=== PATIENT | male | born 1980 | race Caucasian/White ===

== ENCOUNTER → 2018-04-18 | Outpatient (REF) | payer OTHER | LOC: M LAB REF 15:36 | PROVIDERS: ATTEND Surgery | DX: D17.21 Benign lipomatous neoplasm of skin and subcutaneous tissue of right arm (principal) ==

== ENCOUNTER 2019-03-22 09:00 | Emergency (ER) | payer BC, OTHER ==
[~2019-03-22] VITALS: Ht 180.3 cm; Wt 71.2 kg
[2019-03-22] MEDS ORDERED: SUBO8MIS (09:08)
[2019-03-22] MEDS ORDERED: GABA-843 (09:08)
[2019-03-22 10:06] LABS: BASO # 0.1 10^3/uL (0.0-0.2); EOS # 0.7 10^3/uL (0.0-0.5); EOS % 5.6 % (0.0-3.0); HEMATOCRIT 34.4 % (42.0-52.0); HEMOGLOBIN 11.8 g/dl (13.5-17.5); LYMPH # 2.4 10^3/uL (1.5-5.0); LYMPH % 20.3 % (24.0-44.0); MEAN CORPUSCULAR HEMOGLOBIN 31.1 pg (27.0-33.0); MEAN CORPUSCULAR HGB CONC 34.3 g/dl (32.0-36.5); MEAN CORPUSCULAR VOLUME 90.8 fl (80.0-96.0); MONO # 1.2 10^3/uL (0.0-0.8); MONO % 9.8 % (0.0-5.0); NEUTROPHILS # 7.5 10^3/uL (1.5-8.5); PLATELET COUNT, AUTOMATED 399 10^3/uL (150-450); RED BLOOD COUNT 3.79 10^6/uL (4.30-6.10); WHITE BLOOD COUNT 11.9 10^3/uL (4.0-10.0)
[2019-03-22] MEDS ORDERED: MORPHINE 4 MG/ML 1ML VIAL/SYRINGE (J2270) IV ONE ×2 (10:15→11:00)
--- NOTE | 2019-03-22 10:16 | REP ---
LIMITED FACIAL BONE SERIES: Three limited views of the facial bones are performed. Patient sustained laceration to the chin. No fracture is seen of the visualized osseous structures. I see no intrinsic osseous pathology. The visualized paranasal sinuses do not demonstrate air fluid levels. Electronically Signed by Dane Torre MD 03/23/2019 11:20 A
[2019-03-22 10:18] LABS: INR 1.09; PROTHROMBIN TIME 13.8 SECONDS (11.8-14.0)
[2019-03-22 10:19] LABS: PARTIAL THROMBOPLASTIN TIME 32.8 SECONDS (25.0-38.4)
[2019-03-22] MEDS ORDERED: CLINDAMYCIN 900 MG in IV 1 EA IV ONE (10:45)
[2019-03-22] MEDS ORDERED: LIDOCAINE W/EPINEPHRINE 1% 20ML VIAL SC ONE (10:45)
[2019-03-22 11:59] LABS: BLOOD UREA NITROGEN 15 MG/DL (7-18); CARBON DIOXIDE LEVEL 29 MEQ/L (21-32); CHLORIDE LEVEL 104 MEQ/L (98-107); CREATININE FOR GFR 0.86 MG/DL (0.70-1.30); GLOMERULAR FILTRATION RATE > 60.0 (>60); GLUCOSE, FASTING 89 MG/DL (70-100); POTASSIUM SERUM 4.1 MEQ/L (3.5-5.1); SODIUM LEVEL 140 MEQ/L (136-145)
[2019-03-22] MEDS ORDERED: KETO10TAB PO (12:07)
[2019-03-22] MEDS ORDERED: CLEO300C2 PO (12:07)
[2019-03-22] MEDS ORDERED: PERI0.126 PO (12:11)
[2019-03-22] MEDS ORDERED: ACETAMINOPHEN 325 MG TAB PO ONE (12:15)
[2019-03-22] MEDS ORDERED: KETOROLAC 60 MG/2 ML VIAL (J1885) IM ONE (12:15)
[2019-03-22] MEDS ORDERED: KETOROLAC 30 MG/ML VIAL (J1885) IV ONE (12:15)
[2019-03-22 12:16] VITALS: BP 139/68
[2019-03-22] MEDS ORDERED: TRAM50TA2 PO (12:20)
--- NOTE | 2019-03-22 12:26 | CR.PDOC ---
General Surgery Consultation Date of Consultation 03/22/19 History and Physical CONSULT REPORT FOR: Otolaryngology from the ER REASON FOR CONSULTATION: Facial laceration HISTORY OF PRESENT ILLNESS: This is a 39-year-old male who fell backwards off of the staircase and landed squarely on his chin. There was no loss of consciousness. Bleeding has subsided. There is no evidence of facial fracture. He does have a through and through laceration of the chin into the mucosa of the mouth. PAST MEDICAL HISTORY: 1. See chart. PAST SURGICAL HISTORY: INCLUDES: 1. See chart. PREVIOUS ANESTHESIA REACTIONS: None ALLERGIES: Please see below. FAMILY HISTORY: Noncontributory. HOME MEDICATIONS: Please see below. REVIEW OF SYSTEMS: GENERAL: [Denies chills, reports weight gain, reports feeling febrile yesterday]. HEENT: Negative save what was mentioned in the HPI. NECK: Denies any neck pain]. CARDIOVASCULAR: [Denies chest pain and palpitations]. MUSCULOSKELETAL: [Denies arthralgias, back pain and thrombophlebitis]. SKIN: [Denies rash]. NEUROLOGIC: [Denies headache, stroke and transient ischemic attack]. PSYCHIATRIC: [Denies anxiety and depression]. ENDOCRINE: [Denies thyroid disease]. HEMATOLOGY/ONCOLOGY: [Denies bleeding or clotting disorder]. HEART: [Denies any chest pains, palpitations, paroxysmal dyspnea, orthopnea]. PULMONARY: [Denies chronic cough, dyspnea and wheezing]. GASTROINTESTINAL: [Denies rectal bleeding, family history of colon cancer, constipation, diarrhea, dysphagia, heartburn and jaundice]. GENITOURINARY: [Denies dysuria, frequency, hematuria and nocturia]. ENDOCRINE: [Denies polydipsia, polyphagia, polyuria, heat or cold intolerance]. INFECTIOUS: [Denies any recent upper respiratory tract infection, UTI, need for use of antibiotics]. NUTRITION: [Reports good appetite]. PHYSICAL EXAMINATION: VITALS SIGNS: Please see below. GENERAL APPEARANCE:[Patient seen, laying in bed, awake, alert, and oriented. Comfortable, in no acute distress]. FOCUSED HEENT: EARS: Bilateral external auditory canals are clear and patent, normal appearance. The bilateral tympanic membranes with no evidence of middle ear effusion. NOSE: Bilateral nares are clear and patent. Normal appearance of the septum, which is midline and intact. Normal appearance of the bilateral inferior turbinates. ORAL CAVITY: Gingiva is within normal limits. Tongue is freely mobile. Floor of mouth is soft. Normal examination of the hard palate, soft palate and the posterior wall of the oropharynx, there is a defect of the anterior inferior gingival mucosa contiguous with the chin laceration approximately 2.5 cm in length NECK: [Supple, no thyromegaly. No obvious jugular venous distention]. FACE: There is a 2.5 cm laceration of the chin which is contiguous with the oral cavity LABORATORY DATA: Please see below. IMAGING STUDIES: X-ray of the facial bones was reviewed. No fracture seen. PROCEDURE NOTE: Repair of facial laceration. Verbal consent was obtained from the patient. The wound was cleansed with an alcohol swab, as well as saline soaked gauze and the wound was anesthetized using 1% lidocaine with epinephrine. The wound was then closed in 3 layers. The oral mucosa was closed with interrupted 4-0 chromic gut suture. Next, I turned my attention to the external portion of the wound. The deep tissues were reapproximated with interrupted 3-0 Vicryl suture and the skin was brought together with 5-0 nylon suture in a running locking fashion. The patient tolerated the procedure very well. IMPRESSION AND PLAN: 1. Full-thickness facial laceration. The patient be sent home with oral clindamycin for 1 week as well as Peridex mouth rinse to be used twice a day after his meals. He should also use bacitracin ointment to his incision twice a day and wash the area with soap and water. He does not need to keep the incision covered. He should return to the ER in 1 week to have the stitches removed from his chin. The intraoral sutures will dissolve on their own. Thank you for this consult. Vital Signs Vital Signs Date Time Temp Pulse Resp B/P (MAP) Pulse Ox O2 Delivery O2 Flow Rate FiO2 03/22/19 11:16 18 03/22/19 09:20 03/22/19 09:01 99.2 69 99 Room Air Laboratory Data Labs 24H Laboratory Tests 2 03/22/19 09:48: Immature Granulocyte % (Auto) 0.3, Neutrophils (%) (Auto) 63.0, Lymphocytes (%) (Auto) 20.3L, Monocytes (%) (Auto) 9.8H, Eosinophils (%) (Auto) 5.6H, Basophils (%) (Auto) 1.0, Neutrophils # (Auto) 7.5, Lymphocytes # (Auto) 2.4, Monocytes # (Auto) 1.2H, Eosinophils # (Auto) 0.7H, Basophils # (Auto) 0.1, Nucleated Red Blood Cells % (auto) 0.0, Prothrombin Time 13.8, Prothromb Time International Ratio 1.09, Activated Partial Thromboplast Time 32.8, Anion Gap 7L, Glomerular Filtration Rate > 60.0, Calcium Level 9.0 CBC/BMP Laboratory Tests 03/22/19 09:48 Home Medications Scheduled Chlorhexidine Gluconate (Peridex) 473 Ml Mouthwash, 15 ML PO BID Clindamycin Hcl (Cleocin HCl) 300 Mg Capsule, 300 MG PO TID Scheduled PRN Ketorolac Tromethamine (Ketorolac Tromethamine) 10 Mg Tablet, 10 MG PO Q6HP PRN for pain Miscellaneous Medications Buprenorphine HCl/Naloxone HCl (Suboxone 8 mg-2 mg Sl Film) 1 Each Film, (Reported) Gabapentin (Gabapentin) 300 Mg Capsule, (Reported) Allergies Coded Allergies: erythromycin base (Verified Allergy, Intermediate, HIVES, 03/22/19) LAZ MONTOYA MD Mar 22, 2019 12:26
== END 2019-03-22 12:31 | disposition home or self-care (01) ==
LOC: M ED 09:00
DX: S01.81XA Laceration without foreign body of other part of head, initial encounter (principal); W10.9XXA Fall (on) (from) unspecified stairs and steps, initial encounter; Y92.89 Other specified places as the place of occurrence of the external cause; Y93.89 Activity, other specified; Y99.8 Other external cause status; F17.200 Nicotine dependence, unspecified, uncomplicated; Z79.899 Other long term (current) drug therapy
CPT/HCPCS: 12051; 70150; 80048; 85025; 85610; 85730; 96365; 96372; 96375; 96376; 99284; J1885; J2270

== ENCOUNTER → 2020-04-02 | Outpatient (REF) | payer OTHER ==
[~2020-04-02] MED LIST: CLEO300C2 PO; GABA-282 PO; KETO10TAB PO; PERI0.126 PO; SUBO8MIS SL; TRAM50TA2 PO
[2020-04-03 10:38] LABS: CRYSTALS, BODY FLUID CA PYROPHOSPHATE (NONE SEEN); SOURCE, BODY FLUID CRYSTALS LFT KNEE
[2020-04-03 11:19] LABS: SOURCE, BODY FLUID GLUCOSE LFT KNEE
[2020-04-03 11:31] LABS: SOURCE, BODY FLUID RT KNEE; SYNOVIAL FLUID COLOR PALE YELLOW (YELLOW)
[2020-04-04 09:53] LABS: BODY FLUID RHEUMATOID SCREEN NEGATIVE (NEGATIVE)
[2020-04-04 09:56] LABS: MUCIN CLOT TEST 3+ (4+)
== END ==
LOC: M LAB REF 10:02
PROVIDERS: ATTEND Physician Assistant
DX: M25.462 Effusion, left knee (principal)

== ENCOUNTER 2020-04-03 09:14 | Inpatient (IN) | payer BC, MEDICAID, OTHER ==
[~2020-04-03] VITALS: Ht 180.3 cm; Wt 86.4 kg
[2020-04-03] MEDS ORDERED: NS 1,000 ML IV ONE (10:15)
[2020-04-03] MEDS ORDERED: KETOROLAC 30 MG/ML 1ML VIAL IV ONE (10:15)
--- NOTE | 2020-04-03 10:28 | REP ---
INDICATION: significant swelling following fall one week ago COMPARISON: None. TECHNIQUE: AP and lateral views of the left tibia/fibula. FINDINGS: The osseous structures and joint spaces are intact and normal. There is no evidence for acute fracture or dislocation. Surrounding soft tissues are unremarkable. No subcutaneous emphysema or radiodense foreign body. Suprapatellar effusion suspected. IMPRESSION: Suprapatellar effusion suspected. No acute fracture or dislocation. <Electronically signed by Mango Crenshaw > 04/03/20 1024
--- NOTE | 2020-04-03 10:29 | REP ---
INDICATION: significant swelling following fall one week ago COMPARISON: None. TECHNIQUE: AP, lateral, bilateral oblique and sunrise views. FINDINGS: Significant soft tissue swelling and large suprapatellar effusion identified. No evidence for acute or healed fracture. No subcutaneous emphysema or foreign body. IMPRESSION: Soft tissue swelling and large suprapatellar effusion. No acute fracture or dislocation identified. <Electronically signed by Mango Crenshaw > 04/03/20 1022
[2020-04-03 11:16] LABS: BASO % 0.5 % (0.0-1.0); EOS # 0.1 10^3/uL (0.0-0.5); EOS % 0.6 % (0.0-3.0); HEMATOCRIT 31.8 % (42.0-52.0); HEMOGLOBIN 10.3 g/dl (13.5-17.5); LYMPH % 11.1 % (24.0-44.0); MEAN CORPUSCULAR HEMOGLOBIN 29.7 pg (27.0-33.0); MEAN CORPUSCULAR HGB CONC 32.4 g/dl (32.0-36.5); MEAN CORPUSCULAR VOLUME 91.6 fl (80.0-96.0); MONO # 0.9 10^3/uL (0.0-0.8); MONO % 10.3 % (0.0-5.0); NEUTROPHILS # 6.8 10^3/uL (1.5-8.5); NEUTROPHILS % 77.2 % (36.0-66.0); PLATELET COUNT, AUTOMATED 659 10^3/uL (150-450); RED BLOOD COUNT 3.47 10^6/uL (4.30-6.10); WHITE BLOOD COUNT 8.8 10^3/uL (4.0-10.0)
[2020-04-03 11:28] LABS: INR 1.06
[2020-04-03 11:29] LABS: PARTIAL THROMBOPLASTIN TIME 39.4 SECONDS (24.2-38.5)
[2020-04-03 11:44] LABS: ALBUMIN 2.6 GM/DL (3.2-5.2); ALT/SGPT 18 U/L (12-78); BILIRUBIN,DIRECT < 0.1 MG/DL (0.0-0.2); BILIRUBIN,TOTAL 0.1 MG/DL (0.2-1.0); BLOOD UREA NITROGEN 8 MG/DL (7-18); CALCIUM LEVEL 8.7 MG/DL (8.5-10.1); CARBON DIOXIDE LEVEL 34 MEQ/L (21-32); CHLORIDE LEVEL 98 MEQ/L (98-107); GLOMERULAR FILTRATION RATE > 60.0 (>60); GLUCOSE, FASTING 120 MG/DL (70-100); POTASSIUM SERUM 4.2 MEQ/L (3.5-5.1); SODIUM LEVEL 136 MEQ/L (136-145)
[2020-04-03 11:58] LABS: ERYTHROCYTE SEDIMENTATION RATE 95 mm/hr (0-15)
--- NOTE | 2020-04-03 12:04 | REP ---
INDICATION: significant swelling ro clot COMPARISON: None. TECHNIQUE: Torre scale and color Doppler evaluation left lower extremity using linear high frequency transducer. FINDINGS: Ultrasound examination of the left lower extremity deep venous structures from the common femoral vein to the popliteal vein demonstrates normal compressibility flow and wave patterns in response to respiration and augmentation. There is no evidence for deep venous thrombosis. There is a complex septated fluid collection in the posterior knee measuring 7.6 x 1.8 x 3.0 cm IMPRESSION: No evidence for deep venous thrombosis. Complex fluid collection in the posterior knee/lower thigh may represent Lira's cyst or hematoma given the patient's history of trauma.. <Electronically signed by Mango Crenshaw > 04/03/20 1050
[2020-04-03] MEDS ORDERED: ceFAZolin SOD 2 GM in IV 1 EA IV ONE (12:30)
[2020-04-03] MEDS ORDERED: NICOTINE 21MG/24HR 1 EA TRANSDERMAL TD ONE (13:30)
[2020-04-03 13:58] LABS: RSV AMPLIFICATION NEGATIVE (NEGATIVE)
[2020-04-03 15:03] LABS: NT-PRO BNP 276 PG/ML (<125)
[2020-04-03] MEDS ORDERED: KETOROLAC 30 MG/ML 1ML VIAL IV PRN (15:15)
[2020-04-03] MEDS ORDERED: VANCOMYCIN 1000MG/20ML VIAL As Ordered ONE (15:35)
[2020-04-03] MEDS ORDERED: ceFAZolin 1GM VIAL (J0690 PER 500MG) As Ordered ONE (15:36)
--- NOTE | 2020-04-03 15:44 | HPEPDOC ---
General Date of Admission 04/03/20 Date of Service: Apr 03, 2020 Chief Complaint The patient is a 40-year-old male admitted with a reason for visit of Left Septic Joint Knee. Source: Patient, RN/MD History of Present Illness 40 year old male with H/O IV drug use ( Mandy ), H/o IV heroin use many years ago on Subaxone, Asthma had a fall 10 days ago when he injured his left knee. Since then his knee has been very swollen and painfull. The swelling has gradually increased to extend down to savannah ankle . He describes the pain as sharp aching about 8/10 in intensity with no radiation. He has not been able to bear weight on that leg. On 04/02/20 he went to the [facility] orthopedic office and a knee tap was done which was suggestive of septic arthritis and he was instructed to come to the ED but he did not come. He came today. His synovial fluid had WBC > 100K, also has calcium pyrophosphate crystals in it. He denied any fever or chills. He denied any SOB or dyspnea on exertion. In the ed both his legs were swollen but the left much larger than the right. Doppler US of the left was negative for DVT. Patient reported he last IV drugs 5 days ago . He used IV Mandy. He was admitted for septic arthritis. Home Medications Scheduled Buprenorphine HCl/Naloxone HCl (Suboxone 8 mg-2 mg Sl Film) 1 Each Film, 1 FILM SL DAILY, (Reported) Gabapentin (Gabapentin) 300 Mg Capsule, 600 MG PO TID, (Reported) Allergies Coded Allergies: erythromycin base (Verified Allergy, Intermediate, HIVES, 03/22/19) Past Medical History Medical History IV drug user Polysubstance abuse currently Mandy IV H/O IV heroin use many years ago on Subaxone. Asthma Surgical History Bilateral inguinal hernia repair Bladder surgery Family History Significant Family History: Heart disease (father and paternal grandmother) Social History * Smoker: current smoker Alcohol: rarely Drugs: IV drug use, other (mandy) A-FIB/CHADSVASC A-FIB History Current/History of A-Fib/PAF?: No Review of Systems Constitutional: Denies: Chills, Fever Eyes: Denies: Pain, Vision change ENT: Denies: Head Aches, Ear Pain, Dysphagia Skin: Denies: Rash, Lesions, Breakdown Pulmonary: Denies: Dyspnea, Cough Cardiovascular: Denies: Chest Pain, Palpitations, Orthopnea, Paroxysmal Noc. Dyspnea, Lt Headedness Gastrointestinal: Denies: Nausea, Vomiting, Abdominal Pain, Diarrhea Genitourinary: Denies: Dysuria, Frequency, Incontinence, Retention Musculoskeletal: Reports: Joint Pain (knee pain) Physical Examination General Exam: Positive: Alert, Cooperative, No Acute Distress, Other (very dirty adn dishealed.) Eye Exam: Positive: PERRLA, Conjunctiva & lids normal, EOMI; Negative: Sclera icteric ENT Exam: Positive: Atraumatic, Mucous membr. moist/pink, Pharynx Normal Neck Exam: Positive: Supple, JVD Chest Exam: Positive: Normal air movement, Other (basal crackles) Heart Exam: Positive: Tachycardic, Regular Rhythm, Normal S1, Normal S2, Murmurs (systolic murmur in parasternal area); Negative: Rubs Telemetry: Positive: Sinus, Tachycardia Abdomen Exam: Positive: Normal bowel sounds, Soft; Negative: Tenderness, Hepatospenomegaly Extremity Exam: Positive: Edema (bipedal pitting left greater that right. ), Normal pulses, Tenderness (left knee), Other (redness and warth of the left knee); Negative: Clubbing, Cyanosis Skin Exam: Positive: Other skin issue (injection jane and jane of what looks like skin popping in both the arms and legs. ) Vital Signs Vital Signs Date Time Temp Pulse Resp B/P (MAP) Pulse Ox O2 Delivery O2 Flow Rate FiO2 04/03/20 14:50 98.7 81 16 128/76 (93) 97 Room Air Laboratory Data Labs 24H Laboratory Tests 2 04/03/20 11:04: Prothrombin Time 14.0, Prothromb Time International Ratio 1.06, Activated Partial Thromboplast Time 39.4H, Anion Gap 4L, Glomerular Filtration Rate > 60.0, Lactic Acid Level 0.8, Calcium Level 8.7, Total Bilirubin 0.1L, Direct Bilirubin < 0.1, Aspartate Amino Transf (AST/SGOT) 25, Alanine Aminotransferase (ALT/SGPT) 18, Alkaline Phosphatase 134H, C-Reactive Protein, Quantitative 21.00H, VS-Umb-B-Type Natriuretic Peptide 276H, Total Protein 7.0, Albumin 2.6L, Albumin/Globulin Ratio 0.6 04/03/20 11:05: Immature Granulocyte % (Auto) 0.3, Neutrophils (%) (Auto) 77.2H, Lymphocytes (%) (Auto) 11.1L, Monocytes (%) (Auto) 10.3H, Eosinophils (%) (Auto) 0.6, Basophils (%) (Auto) 0.5, Neutrophils # (Auto) 6.8, Lymphocytes # (Auto) 1.0L, Monocytes # (Auto) 0.9H, Eosinophils # (Auto) 0.1, Basophils # (Auto) 0.0, Nucleated Red Blood Cells % (auto) 0.0, Erythrocyte Sedimentation Rate 95H 04/03/20 12:37: Coronavirus (COVID-19)(PCR) NEGATIVE, Influenza Type A (RT-PCR) NEGATIVE, Influenza Type B (RT-PCR) NEGATIVE, Respiratory Syncytial Virus (PCR) NEGATIVE CBC/BMP Laboratory Tests 04/03/20 11:04 04/03/20 11:05 Microbiology Microbiology 04/03/20 Blood Culture, Received Pending 04/03/20 Blood Culture, Received Pending Assessment/Plan 40 year old male with H/O IV drug use ( Mandy ), H/o IV heroin use many years ago on Subaxone, Asthma had a fall 10 days ago when he injured his left knee. Since then his knee has been very swollen and painfull. The swelling has gradually increased to extend down to savannah ankle . He describes the pain as sharp aching about 8/10 in intensity with no radiation. He has not been able to bear weight on that leg. On 04/02/20 he went to the [facility] orthopedic office and a knee tap was done which was suggestive of septic arthritis and he was instructed to come to the ED but he did not come. He came today. His synovial fluid had WBC > 100K, also has calcium pyrophosphate crystals in it. He denied any fever or chills. He denied any SOB or dyspnea on exertion. In the ed both his legs were swollen but the left much larger than the right. Doppler US of the left was negative for DVT. Patient reported he last IV drugs 5 days ago . He used IV Mandy. He was admitted for septic arthritis. Left Knee Septic arthritis synovial fluid from 04/02 noted. CRP 21 going to OR with Dr Alexander for knee washout will start on vancomycin after procedure. Had joint fluid culture sent yesterday. Pain control with toradol and tylenol and gabapentin. Patient did not want any opiates. Pseudogout of the left knee has calcium pyrophosphate crystals will start on NSAIDs and consider prednisone. Rule out infective endocarditis active iv drug user, has bipedal edema , with JVD, tachy with gallop and systolic murmur Clinically he seems to have CHF will get an echo. Blood cultures have been ordered After OR will give a dose of lasix. H/o IV heroin abuse cont subaxone Plan / VTE VTE Prophylaxis Ordered?: Yes YANIV DAVE MD Apr 03, 2020 15:44
--- NOTE | 2020-04-03 15:48 | CR ---
CONSULTATION DATE: 04/03/2020 CHIEF COMPLAINT: Left knee swelling. HISTORY OF PRESENT ILLNESS: This is a 40-year-old man who became known to me at approximately 12:15 p.m. today. I was called by the [facility] on-call in the Emergency Department, Gia Sullivan. She stated that the patient has had a left knee aspiration done by Greg Asif [place] [facility] [place] The patient presented to the Emergency Department this morning with worsening in terms of his left knee pain and swelling. Knee aspiration was consistent with a septic joint. I came to see the patient within the next hour and a half due to my concerns about an acute septic joint of his left knee. Per the patient, his knee has been painful for the last month. He is a poor historian. He feels like it has been getting worse in terms of the swelling and redness since yesterday. He denies fever or chills, drainage or other constitutional symptoms. He says that he feels well. He has used IV drugs a week ago and is on Suboxone. PAST MEDICAL HISTORY: Nil. MEDICATIONS: 1. Suboxone 60 mg once daily. 2. Gabapentin 1800 mg once daily. ALLERGIES: Erythromycin. PAST SURGICAL HISTORY: Hernia. SOCIAL HISTORY: He works in construction. He smokes one pack of cigarettes a day. He drinks alcohol but none specified amount. He did IV drugs about a week ago. He has been NPO the whole day. PHYSICAL EXAMINATION: Unwell and somnolent appearing 40-year-old man. He has redness and warmth from his left knee down towards the foot, pain in the calf but overall compartments are not firm. He has an obvious left knee moderate to large size effusion. He has pain even with micro-motion of the knee and pain with knee range of motion greater 30 degrees of flexion. He holds it in a flexed position at approximately 10 to 15 degrees of flexion. He has normal sensation and motor function of the foot. The foot is warm and well-perfused. X-RAYS: Knee x-rays demonstrate soft tissue swelling and large suprapatellar effusion. No acute fracture or dislocation identified. LABORATORY DATA: White blood cell count 8.8. Hemoglobin 10.3. Neutrophils percentage 77.2, ESR 95, CRP 21. INR 1.06. COVID negative. Knee aspiration dated 04/02/2020 collected at 2 p.m. demonstrates pale-yellow fluid, WBC count 134,420, PMN percentage 93.6%. No crystals. ASSESSMENT AND PLAN: A 40-year-old man who appears to have clinical signs and symptoms as well as aspiration evidence of an acute left knee septic arthritis as well as a moderate to severe cellulitis of the left lower extremity likely precipitated by his IV drug use. I recommend urgent surgical irrigation and debridement of the left knee as well as sending samples for culture and sensitivity. We will place him on immediate IV antibiotics as it sounds like this has possibly been going on for now over 24 hours and there already has been a sample sent yesterday. I will keep the patient NPO and he will be admitted under the Hospitalist for full medical management. In addition, I recommend Infectious Disease consult by Dr. Evans. I have let the OR know that this is an emergency case and it needs to be done as soon as possible and will likely be done within the next 1-2 hours according to the Operating Room nurses. I had let the patient know about the pros and cons and risks and benefits of doing nothing versus acute irrigation and debridement arthroscopically of his left knee. He wished to proceed. Specific surgical risks include but are not limited to infection, pain, stiffness, bleeding, damage to surrounding structures including the cartilage, neurovascular injury, need for repeat washout or further surgeries, anesthetic complications, blood clots, and other risks. He signed a consent form and I marked the left lower extremity. I also consented him for possible need for blood products or transfusion. I explained the pros, cons and risks and benefits of that to him as well. He understands and I have also communicated my findings and assessment to Gia Sullivan as well.
[2020-04-03] MEDS ORDERED: ONDANSETRON 4MG/2ML VIAL As Ordered ONE (15:50)
[2020-04-03] MEDS ORDERED: GLYCOPYRROLATE INJ 0.2 MG/ML 2 ML VIAL As Ordered ONE (15:50)
[2020-04-03] MEDS ORDERED: fentaNYL 100 MCG/2 ML INJECTION (J3010) As Ordered ONE (15:50)
[2020-04-03] MEDS ORDERED: dexameTHASONE 4 MG/ML 1ML VIAL (J1100 PER 1MG) As Ordered ONE (15:50)
[2020-04-03] MEDS ORDERED: LIDOCAINE 2% 100MG/5ML SDV (FOR ANES.) As Ordered ONE (15:50)
[2020-04-03] MEDS ORDERED: propofoL 200 MG/20 ML VIAL As Ordered ONE (15:50)
[2020-04-03] MEDS ORDERED: MIDAZOLAM INJ 2MG/2ML VIAL (J2250 PER 1MG) As Ordered ONE (15:50)
[2020-04-03] MEDS ORDERED: ACETAMINOPHEN 1000MG 100ML IV BTL (OFIRMEV) (J0131 PER 10MG) As Ordered ONE (15:55)
[2020-04-03] MEDS ORDERED: KETOROLAC 60MG 2ML VIAL As Ordered ONE (16:03)
[2020-04-03] MEDS ORDERED: ONDANSETRON 4MG/2ML VIAL IV PRN (17:00)
[2020-04-03] MEDS ORDERED: METOCLOPRAMIDE INJ 10MG/2ML VIAL (J2765 PER 1) IV PRN (17:00)
[2020-04-03] MEDS ORDERED: LR 1,000 ML IV SCH (17:00)
[2020-04-03] MEDS: fentaNYL 100 MCG/2 ML INJECTION (J3010) IV PRN ×4 (17:10→17:26)
[2020-04-03] MEDS: oxyCODONE 5MG TAB PO PRN ×2 (17:11→17:50)
[2020-04-03] MEDS ORDERED: HYDROMORPHONE HCL 0.5 MG/ 0.5 ML SYRINGE (J1170 PER 1) As Ordered ONE ×2 (17:28→17:35)
[2020-04-03] MEDS: HYDROMORPHONE HCL 0.5 MG/ 0.5 ML SYRINGE (J1170 PER 1) IV PRN ×2 (17:43→17:51)
[2020-04-03 18:21] VITALS: BP 133/82
[2020-04-03] MEDS ORDERED: FUROSEMIDE 40MG/4ML VIAL (J1940) IV ONE (18:30)
[2020-04-03] MEDS: GABAPENTIN 300 MG CAP PO SCH ×2 (18:33→21:48)
[2020-04-03] MEDS: PANTOPRAZOLE 40MG TAB (PROTONIX) PO SCH (18:33)
[2020-04-03] MEDS: NICOTINE 21MG/24HR 1 EA TRANSDERMAL TD SCH (18:33)
[2020-04-03 18:58] VITALS: BP 132/82
[2020-04-03 20:00] VITALS: BP 127/75
[2020-04-03] MEDS ORDERED: cefTRIAXone SOD 2 GM in D5W MINI-BAG PLUS 50 ML IV SCH (20:00)
[2020-04-03] MEDS ORDERED: VANCOMYCIN HCL 1,000 MG, VIAL MATE ADAPTER 1 EACH in D5W 250 ML IV SCH (20:30)
[2020-04-03 21:00] VITALS: BP 118/67
[2020-04-03] MEDS ORDERED: VANCOMYCIN HCL 1,000 MG, VIAL MATE ADAPTER 1 EACH in D5W 250 ML IV ONE ×2 (21:00→22:00)
[2020-04-03 22:00] VITALS: BP 126/69
[2020-04-04 03:00] VITALS: BP 120/69
[2020-04-04 06:00] VITALS: BP 111/70
[2020-04-04] MEDS ORDERED: VANCOMYCIN HCL 1,000 MG, VIAL MATE ADAPTER 1 EACH in D5W 250 ML IV SCH (06:00)
[2020-04-04 06:19] LABS: BASO % 0.1 % (0.0-1.0); HEMATOCRIT 31.9 % (42.0-52.0); HEMOGLOBIN 10.3 g/dl (13.5-17.5); LYMPH % 12.6 % (24.0-44.0); MEAN CORPUSCULAR HEMOGLOBIN 29.8 pg (27.0-33.0); MEAN CORPUSCULAR HGB CONC 32.3 g/dl (32.0-36.5); MEAN CORPUSCULAR VOLUME 92.2 fl (80.0-96.0); MONO % 12.2 % (0.0-5.0); NEUTROPHILS # 6.2 10^3/uL (1.5-8.5); NEUTROPHILS % 74.9 % (36.0-66.0); PLATELET COUNT, AUTOMATED 701 10^3/uL (150-450); RED BLOOD COUNT 3.46 10^6/uL (4.30-6.10); WHITE BLOOD COUNT 8.3 10^3/uL (4.0-10.0)
[2020-04-04 06:44] LABS: BLOOD UREA NITROGEN 13 MG/DL (7-18); CALCIUM LEVEL 8.4 MG/DL (8.5-10.1); CARBON DIOXIDE LEVEL 30 MEQ/L (21-32); CHLORIDE LEVEL 103 MEQ/L (98-107); CREATININE FOR GFR 0.96 MG/DL (0.70-1.30); GLOMERULAR FILTRATION RATE > 60.0 (>60); GLUCOSE, FASTING 189 MG/DL (70-100); MAGNESIUM LEVEL 2.1 MG/DL (1.8-2.4); POTASSIUM SERUM 4.2 MEQ/L (3.5-5.1); SODIUM LEVEL 140 MEQ/L (136-145)
[2020-04-04] MEDS: PANTOPRAZOLE 40MG TAB (PROTONIX) PO SCH (08:08)
[2020-04-04] MEDS: NICOTINE 21MG/24HR 1 EA TRANSDERMAL TD SCH (08:09)
[2020-04-04] MEDS: GABAPENTIN 300 MG CAP PO SCH (08:09)
[2020-04-04] MEDS ORDERED: BUPRENORPHINE/NALOXONE 8-2MG SUBLINGUAL TABLET(SUBOXONE) SL SCH (09:00)
[2020-04-04] MEDS ORDERED: traMADol 50 MG TAB PO PRN (10:00)
--- NOTE | 2020-04-04 10:16 | IPNPDOC ---
Subjective Date Seen The patient was seen on 04/04/20. Subjective Chief Complaint/HPI Went on OR for knee washout yesterday. No fever or chills, Says the joint feels better but hydraulic press tender. Swelling of both legs have gone down . No fever ro chills. He says he wants to go home this morning. i explained that he is growing Staph in his joint and needs IV antibiotics so needs to stay in hospital . If he insitis on going home he will have to go AMA. I explained that he may become septic develop infective endocarditis if he leaves early without completing treatment. Objective Physical Examination General Exam: Positive: Alert, Cooperative, No Acute Distress Eye Exam: Positive: PERRLA, Conjunctiva & lids normal, EOMI; Negative: Sclera icteric ENT Exam: Positive: Atraumatic, Mucous membr. moist/pink, Pharynx Normal Neck Exam: Positive: Supple, JVD Chest Exam: Positive: Normal air movement, Other (basal crackles) Heart Exam: Positive: Rate Normal, Regular Rhythm, Normal S1, Normal S2, Murmurs (no murmur or gallop today); Negative: Rubs Abdomen Exam: Positive: Normal bowel sounds, Soft; Negative: Tenderness, Hepatospenomegaly Extremity Exam: Positive: Edema (only on left leg now), Normal pulses, Tenderness (left knee), Other; Negative: Clubbing, Cyanosis Skin Exam: Positive: Other skin issue (injection jane and jane of what looks like skin popping in both the arms and legs. ) Assessment /Plan Assessment 40 year old male with H/O IV drug use ( Leonarda ), H/o IV heroin use many years ago on Subaxone, Asthma had a fall 10 days ago when he injured his left knee. Since then his knee has been very swollen and painfull. The swelling has gradually increased to extend down to sav[place] ankle . He describes the pain as sharp aching about 8/10 in intensity with no radiation. He has not been able to bear weight on that leg. On 04/02/20 he went to the [facility] orthopedic office and a knee tap was done which was suggestive of septic arthritis and he was in structed to come to the ED but he did not come. He came today. His synovial fluid had WBC > 100K, also has calcium pyrophosphate crystals in it. He denied any fever or chills. He denied any SOB or dyspnea on exertion. In the ed both his legs were swollen but the left much larger than the right. Doppler US of the left was negative for DVT. Patient reported he last IV drugs 5 days ago . He used IV Leonarda. He was admitted for septic arthritis. Left Knee Septic arthritis synovial fluid from 04/02 noted. Culture Staph aureus. s/p knee washout on 04/03/20 Vancomycin and ceftriaxone. Pain control with toradol and tylenol and gabapentin. Will consult ID Pseudogout of the left knee has calcium pyrophosphate crystals NSAIDs and tramadol. Rule out infective endocarditis active iv drug user, has bipedal edema , with JVD, tachy with gallop and systolic murmur Clinically he seems to have CHF will get an echo. Blood cultures pending. Joint fluid culture Staph aureus. H/o IV heroin abuse cont subaxone Tobaccco use counselled about quitting. Not interested at this point. continue nicotine patch Plan/VTE VTE Prophylaxis Ordered?: Yes VS, I&O, 24H, Fishbone Vital Signs/I&O Vital Signs Date Time Temp Pulse Resp B/P (MAP) Pulse Ox O2 Delivery O2 Flow Rate FiO2 04/04/20 06:00 96.9 69 18 111/70 (84) 97 Room Air 04/03/20 16:55 2 I&O- Last 24 Hours up to 6 AM 04/04/20 06:00 Intake Total 3790 ml Output Total 1650 ml Balance 2140 ml Laboratory Data 24H LABS Laboratory Tests 2 04/03/20 11:04: Prothrombin Time 14.0, Prothromb Time International Ratio 1.06, Activated Partial Thromboplast Time 39.4H, Anion Gap 4L, Glomerular Filtration Rate > 60.0, Lactic Acid Level 0.8, Calcium Level 8.7, Total Bilirubin 0.1L, Direct Bilirubin < 0.1, Aspartate Amino Transf (AST/SGOT) 25, Alanine Aminotransferase (ALT/SGPT) 18, Alkaline Phosphatase 134H, C-Reactive Protein, Quantitative 21.00H, XA-Pqh-A-Type Natriuretic Peptide 276H, Total Protein 7.0, Albumin 2.6L, Albumin/Globulin Ratio 0.6 04/03/20 11:05: Immature Granulocyte % (Auto) 0.3, Neutrophils (%) (Auto) 77.2H, Lymphocytes (%) (Auto) 11.1L, Monocytes (%) (Auto) 10.3H, Eosinophils (%) (Auto) 0.6, Basophils (%) (Auto) 0.5, Neutrophils # (Auto) 6.8, Lymphocytes # (Auto) 1.0L, Monocytes # (Auto) 0.9H, Eosinophils # (Auto) 0.1, Basophils # (Auto) 0.0, Nucleated Red Blood Cells % (auto) 0.0, Erythrocyte Sedimentation Rate 95H 04/03/20 12:37: Coronavirus (COVID-19)(PCR) NEGATIVE, Influenza Type A (RT-PCR) NEGATIVE, Influenza Type B (RT-PCR) NEGATIVE, Respiratory Syncytial Virus (PCR) NEGATIVE 04/04/20 05:59: Anion Gap 7L, Glomerular Filtration Rate > 60.0, Calcium Level 8.4L, C-Reactive Protein, Quantitative 17.70H, Immature Granulocyte % (Auto) 0.2, Neutrophils (%) (Auto) 74.9H, Lymphocytes (%) (Auto) 12.6L, Monocytes (%) (Auto) 12.2H, Eosinophils (%) (Auto) 0.0, Basophils (%) (Auto) 0.1, Neutrophils # (Auto) 6.2, Lymphocytes # (Auto) 1.0L, Monocytes # (Auto) 1.0H, Eosinophils # (Auto) 0.0, Basophils # (Auto) 0.0, Nucleated Red Blood Cells % (auto) 0.0, Magnesium Level 2.1 CBC/BMP Laboratory Tests 04/03/20 11:04 04/03/20 11:05 04/04/20 05:59 Microbiology Microbiology 04/03/20 Wound Culture, Received Pending 04/03/20 Anaerobic Culture, Received Pending 04/03/20 Blood Culture, Received Pending 04/03/20 Blood Culture, Received Pending YANIV DAVE MD Apr 04, 2020 07:38
--- NOTE | 2020-04-04 11:16 | RO ---
OPERATIVE NOTE DATE OF OPERATION: 04/03/2020 PREOPERATIVE DIAGNOSIS: Left septic knee arthritis. POSTOPERATIVE DIAGNOSIS: Left septic knee arthritis. PLANNED PROCEDURE: Left knee arthroscopic irrigation and debridement. PROCEDURE PERFORMED: Left knee arthroscopic irrigation and debridement. SURGEON: Sean Alexander M.D. CAFETERIA DIRECTOR: Ning Villasenor M.D. ANESTHESIA: General. OPERATIVE PREAMABLE: This 40-year-old man was consulted to me the day of surgery. He had had an aspiration done by a PA at the [facility] the day before and it was resulted and known to me shortly afternoon on the date of 04/03/2020. This was showing septic knee picture. I rapidly assessed the patient and booked him for emergency surgery including irrigation and debridement arthroscopically of the left knee. OPERATIVE REPORT: The patient was brought to the operating room theater. He was placed supine on the operating room table. General anesthesia was induced. One gram of IV vancomycin was administered for both treatment and wound prophylaxis. Stress positioner was used to the patient's left side. A 34 inch tourniquet was applied to the left side and appropriately padded. Total tourniquet time was 13 minutes. The limb was prepped and draped in the usual sterile fashion with chlorhexidine-based prep solution, allowing over 3 minutes prep solution drying time prior to draping. Preoperative time-out was performed to confirm the site, the patient, and the surgery. We began by elevating the limb and inflating the tourniquet to 250 mmHg. I used standard anterolateral and anteromedial arthroscopy portals. I performed a thorough irrigation and debridement to the intraarticular portion of the knee. He had a small medial meniscus tear that I debrided on the inner free margin for approximately 5% or less of the medial meniscus. There was already some cartilage damage grade 2 possibly even g3 softening for a small area of approximately 1 x 1 cm on the mid aspect of the medial femoral condyle. The lateral compartment appeared normal as did the patellofemoral compartment. I performed a three-compartment synovectomy for a complete intraarticular synovectomy and debridement. I used 4 liters of ringers lactate with 1 gram of Ancef per liter. The case was terminated. Arthroscopy pictures taken and saved onto the system. Tourniquet let down. Wound thoroughly cleaned with wet-to-dry dressing followed by application of Steri-Strips, Adaptic, 4 x 8 gauze, and ABD dressing over wrapped with a sterile 6 inch Thomas bandage. At the start of the case, I did use an 18-gauze needle with a 30 mL syringe as well to aspirate 25 mL of purulent fluid that I sent for aerobes and anaerobes prior to the start of the case as well. The patient was woken up from general anesthetic, transferred off the operating table, and taken to the postanesthetic care unit in stable condition. All sponge counts, needle counts, and instrument counts were correct. No complications. Estimated blood loss 20 mL. PLAN: The patient is to be weightbearing as tolerated. Range of motion as tolerated. He has been admitted under the hospitalist service, as well as consulted the infectious disease service to determine antibiotic choice and route while awaiting final cultures then be placed on vancomycin.
[2020-04-04] MEDS ORDERED: PERCOCET 5MG/325MG TAB PO PRN ×2 (11:30)
[2020-04-04] MEDS ORDERED: KETOROLAC 30 MG/ML 1ML VIAL IV SCH (12:00)
--- NOTE | 2020-04-07 00:18 | DS.PDOC ---
Discharge Summary General Date of Admission 03/03/20 Date of Discharge 03/04/20 Discharge Summary PROCEDURES PERFORMED DURING STAY: : Left knee arthroscopic irrigation and debridement. DISCHARGE DIAGNOSES: Left MRSA Septic arthritis Pseudogout of left Knee. Polysubstance abuse using IV Leonarda H/O IV Heroin use on Suboxone. Tobacco use. COMPLICATIONS/CHIEF COMPLAINT: Left Septic Joint Knee. HOSPITAL COURSE:40 year old male with H/O IV drug use ( Leonarda ), H/o IV heroin use many years ago on Subaxone, Asthma had a fall 10 days ago when he injured his left knee. Since then his knee has been very swollen and painfull. The swelling has gradually increased to extend down to sav[place] ankle . He describes the pain as sharp aching about 8/10 in intensity with no radiation. He has not been able to bear weight on that leg. On 04/02/20 he went to the [facility] orthopedic office and a knee tap was done which was suggestive of septic arthritis and he was instructed to come to the ED but he did not come. He came today. His synovial fluid had WBC > 100K, also has calcium pyrophosphate crystals in it. He denied any fever or chills. He denied any SOB or dyspnea on exertion. In the ed both his legs were swollen but the left much larger than the right. Doppler US of the left was negative for DVT. Patient reported he last IV drugs 5 days ago . He used IV Leonarda. He was admitted for septic arthritis. Culture from outside and this admission grew MRSA. He had a knee washout on 04/03/20. He was started on vancomycin and ceftriaxone. On 04/04/20 patient signed out AMA. Left Knee Septic arthritis synovial fluid from 04/02 noted. Culture MRSA s/p knee washout on 04/03/20 was on Vancomycin and ceftriaxone. Pseudogout of the left knee has calcium pyrophosphate crystals Rule out infective endocarditis active iv drug user, has bipedal edema , with JVD, tachy with gallop and systolic murmur Clinically he seems to have CHF blood cultures negative. Could not get Echo as signed out AMA. H/o IV heroin abuse cont subaxone Tobaccco use counselled about quitting. Not interested at this point. continue nicotine patch DISCHARGE MEDICATIONS: Please see below. ALLERGIES: Please see below. PHYSICAL EXAMINATION ON DISCHARGE: VITAL SIGNS: Please see below. General Exam: Positive: Alert, Cooperative, No Acute Distress Eye Exam: Positive: PERRLA, Conjunctiva & lids normal, EOMI; Negative: Sclera icteric ENT Exam: Positive: Atraumatic, Mucous membr. moist/pink, Pharynx Normal Neck Exam: Positive: Supple, JVD Chest Exam: Positive: Normal air movement, Other (basal crackles) Heart Exam: Positive: Rate Normal, Regular Rhythm, Normal S1, Normal S2, Murmurs (no murmur or gallop today); Negative: Rubs Abdomen Exam: Positive: Normal bowel sounds, Soft; Negative: Tenderness, Hepatosplenomegaly Extremity Exam: Positive: Edema (only on left leg now), Normal pulses, Tenderness (left knee), Other; Negative: Clubbing, Cyanosis Skin Exam: Positive: Other skin issue (injection jane and jane of what looks like skin popping in both the arms and legs. ) LABORATORY DATA: Please see below. ACTIVITY: [As tolerated]. DIET: Regular DISCHARGE PLAN: Let AMA TIME SPENT ON DISCHARGE: 35 minutes. Vital Signs/I&Os Vital Signs Date Time Temp Pulse Resp B/P (MAP) Pulse Ox O2 Delivery O2 Flow Rate FiO2 04/04/20 06:00 96.9 69 18 111/70 (84) 97 Room Air 04/03/20 16:55 2 Microbiology Microbiology 04/03/20 Wound Culture - Final, Complete Staph.aureus Methicillin Resis 04/03/20 Anaerobic Culture - Final, Complete 04/03/20 Blood Culture - Preliminary, Resulted No Growth after 72 hours. All specime... 04/03/20 Blood Culture - Preliminary, Resulted No Growth after 72 hours. All specime... Discharge Medications Scheduled Buprenorphine HCl/Naloxone HCl (Suboxone 8 mg-2 mg Sl Film) 1 Each Film, 1 FILM SL DAILY, (Reported) Gabapentin (Gabapentin) 300 Mg Capsule, 600 MG PO TID, (Reported) Allergies Coded Allergies: erythromycin base (Verified Allergy, Intermediate, HIVES, 03/22/19) YANIV DAVE MD Apr 07, 2020 00:18
== END 2020-04-04 11:20 | disposition left against medical advice (07) | DRG 313 ==
LOC: M ED 09:14 → M SDC 09:15 → EEVIPCON 09:15 → M MS5PR 14:32 → M SDC 18:20 → M MS5PR 04-04 11:20 → M SDC 04-04 11:20
PROVIDERS: ADMIT Internal Medicine Nephrology; ATTEND Internal Medicine Nephrology
PROC: 0SBD4ZZ Excision of Left Knee Joint, Percutaneous Endoscopic Approach (ICD-10-PCS; principal; 2020-04-03 15:30)
DX: M00.862 Arthritis due to other bacteria, left knee (principal); B95.62 Methicillin resistant Staphylococcus aureus infection as the cause of diseases classified elsewhere; F17.200 Nicotine dependence, unspecified, uncomplicated; M10.9 Gout, unspecified; J45.909 Unspecified asthma, uncomplicated; Z88.8 Allergy status to other drugs, medicaments and biological substances; Z79.899 Other long term (current) drug therapy; F14.90 Cocaine use, unspecified, uncomplicated

== ENCOUNTER 2024-08-21 14:10 | Outpatient (CLI) | payer MEDICAID, OTHER ==
[2024-08-21 09:00] VITALS: BP 97/62; TEMP 97; O2SAT 98
[~2024-08-21 14:10] MED LIST changes: +GABA-1172 PO; -GABA-282 PO; +HYDR-3363 PO; +METH10CO PO; +NICO21DI37 TOP; +NICO4LOZ34 MT; +TOPI-21 PO; +TRAZ1TAB14 PO; +WELLTAB38 PO
[2024-08-21] MEDS: DALBAVANCIN 1,500 MG in D5W 250 ML IV ONE (15:20)
[2024-08-21 15:55] VITALS: BP 100/61; TEMP 97; O2SAT 97
== END 2024-08-21 16:40 | disposition home or self-care (01) ==
LOC: M MS5PR 14:10 → M OPCLI5PR 14:10
PROVIDERS: ATTEND Internal Medicine Infectious Disease
DX: M00.862 Arthritis due to other bacteria, left knee (principal); Z88.1 Allergy status to other antibiotic agents
CPT/HCPCS: 96374; 97110; 97161; 97530; J0875

== ENCOUNTER 2024-08-29 14:38 | Outpatient (CLI) | payer OTHER ==
[~2024-08-29] VITALS: Ht 180.3 cm; Wt 91.0 kg
[2024-08-29 15:38] LABS: PLATELET COUNT, AUTOMATED 379 10^3/uL (150-450)
[2024-08-29 15:56] LABS: ERYTHROCYTE SEDIMENTATION RATE 63 mm/hr (0-15)
[2024-08-29] MEDS: DALBAVANCIN 1,500 MG in D5W 250 ML IV ONE (15:57)
[2024-08-29 16:05] LABS: ALT/SGPT 53 U/L (7.0-40); AST/SGOT 51 U/L (<34); C REACTIVE PROTEIN QUANTITATIV 1.26 MG/DL (<1.0); CALCIUM LEVEL 9.5 MG/DL (8.5-10.1); CARBON DIOXIDE LEVEL 28 MMOL/L (20-31); CHLORIDE LEVEL 106 MMOL/L (98-107); CREATININE FOR GFR 1.13 MG/DL (0.70-1.30); GLOMERULAR FILTRATION RATE 82.7 (>60); POTASSIUM SERUM 4.8 MMOL/L (3.5-5.1); SODIUM LEVEL 143 MMOL/L (136-145)
[2024-08-29 16:39] VITALS: BP 116/56; O2SAT 98
== END 2024-08-29 16:30 ==
LOC: M INFU 14:38
PROVIDERS: ATTEND Internal Medicine Infectious Disease
DX: M00.862 Arthritis due to other bacteria, left knee (principal); B95.62 Methicillin resistant Staphylococcus aureus infection as the cause of diseases classified elsewhere; Z88.1 Allergy status to other antibiotic agents
CPT/HCPCS: 36592; 80053; 85027; 85652; 86140; 96365; J0875

== ENCOUNTER → 2024-11-07 | Outpatient (CLI) | payer OTHER ==
[2024-11-08 10:55] LABS: APPEARANCE, URINE CLEAR (CLEAR); BACTERIA, URINE AUTO NEGATIVE (NEGATIVE); BILIRUBIN, URINE AUTO NEGATIVE (NEGATIVE); BLOOD, URINE BLOOD NEGATIVE (NEGATIVE); GLUCOSE, URINE (UA) AUTO NEGATIVE (NEGATIVE); KETONE, URINE AUTO NEGATIVE (NEGATIVE); LEUKOCYTE ESTERASE, URINE AUTO TRACE (NEGATIVE); MUCUS, URINE SMALL (NEGATIVE); NITRITE, URINE AUTO NEGATIVE (NEGATIVE); PROTEIN, URINE AUTO NEGATIVE (NEGATIVE); RBC, URINE AUTO 1 /HPF (0-3); SPECIFIC GRAVITY URINE AUTO 1.020 (1.002-1.035); SQUAMOUS EPITHELIAL CELL UR AU 0 /HPF (0-6); UROBILINOGEN, URINE AUTO 0.2 mg/dL (0.0-2.0); WBC, URINE AUTO 1 /HPF (0-3)
== END ==
LOC: M WUC 10:20
DX: Z00.8 Encounter for other general examination (principal)

== ENCOUNTER → 2024-11-22 | Outpatient (CLI) | payer OTHER ==
[~2024-11-22] MED LIST changes: +ACET-907 PO; +CELE1CAP4 PO
[2024-11-22 15:24] LABS: PLATELET COUNT, AUTOMATED 220 10^3/uL (150-450)
[2024-11-22 16:00] LABS: ALT/SGPT 15 U/L (7.0-40); AST/SGOT 24 U/L (<34); CALCIUM LEVEL 8.9 MG/DL (8.5-10.1); CARBON DIOXIDE LEVEL 29 MMOL/L (20-31); CHLORIDE LEVEL 103 MMOL/L (98-107); CREATININE FOR GFR 0.99 MG/DL (0.70-1.30); GLOMERULAR FILTRATION RATE > 90.0 (>60); POTASSIUM SERUM 3.8 MMOL/L (3.5-5.1); SODIUM LEVEL 142 MMOL/L (136-145)
== END ==
LOC: M PLALAB 14:13
DX: M25.562 Pain in left knee (principal)

== ENCOUNTER 2024-12-17 15:00 | Inpatient (IN) | payer OTHER ==
[~2024-12-17] VITALS: Ht 180.3 cm; Wt 104.5 kg
[2024-12-17 16:55] LABS: BASO # 0.0 10^3/uL (0.0-0.2); BASO % 0.3 % (0.0-1.0); EOS # 0.3 10^3/uL (0.0-0.5); EOS % 2.9 % (0.0-3.0); LYMPH # 2.9 10^3/uL (1.5-5.0); LYMPH % 24.4 % (24.0-44.0); MONO # 1.1 10^3/uL (0.0-0.8); MONO % 9.0 % (2.0-8.0); NEUTROPHILS # 7.5 10^3/uL (1.5-8.5); NEUTROPHILS % 63.1 % (36.0-66.0); PLATELET COUNT, AUTOMATED 584 10^3/uL (150-450)
[2024-12-17 17:10] LABS: C REACTIVE PROTEIN QUANTITATIV 9.99 MG/DL (<1.0); CALCIUM LEVEL 9.2 MG/DL (8.5-10.1); CARBON DIOXIDE LEVEL 28 MMOL/L (20-31); CHLORIDE LEVEL 103 MMOL/L (98-107); CREATININE FOR GFR 0.72 MG/DL (0.70-1.30); GLOMERULAR FILTRATION RATE > 90.0 (>60); POTASSIUM SERUM 4.3 MMOL/L (3.5-5.1); SODIUM LEVEL 142 MMOL/L (136-145)
[2024-12-17] MEDS: NS (Normal Saline) 0.9% 1,000 ML IV ONE (18:45)
[2024-12-17] MEDS ORDERED: MOM 30 ML SUSPENSION UDC PO PRN (19:10)
[2024-12-17] MEDS ORDERED: MAALOX 30 ML SUSP *UDC PO PRN (19:10)
[2024-12-17] MEDS: NS (Normal Saline) 0.9% 1,000 ML IV SCH (19:30)
[2024-12-17] MEDS ORDERED: CELE0.09 PO (19:56)
[2024-12-17] MEDS ORDERED: BUPR-766 PO (19:56)
[2024-12-17] MEDS ORDERED: SFHIBU600 PO (19:59)
[2024-12-17] MEDS ORDERED: REXU1TAB4 PO (19:59)
[2024-12-17] MEDS ORDERED: HOME MED LIST COMPLETE! XX SCH (20:00)
[2024-12-17 22:38] VITALS: BP 135/74; TEMP 97.9; O2SAT 98
[2024-12-17] MEDS: KETOROLAC 30 MG/ML 1 ML VIAL IV PRN (23:14)
[2024-12-17] MEDS: traZODone 50 MG TAB PO PRN (23:14)
[2024-12-18 04:26] VITALS: BP 137/77; TEMP 98.4; O2SAT 96
[2024-12-18] MEDS: KETOROLAC 30 MG/ML 1 ML VIAL IV ONE (04:48)
[2024-12-18] MEDS: IBUPROFEN 800 MG TAB PO PRN (05:58)
[2024-12-18] MEDS: METHADONE 10 MG TAB PO SCH (08:42)
[2024-12-18] MEDS: buPROPion **XL** 150 MG TABLET PO SCH (08:42)
[2024-12-18] MEDS: ENOXAPARIN 40 MG/0.4 ML SYRINGE (J1650 PER 10MG) SC SCH (09:00)
[2024-12-18] MEDS: ACETAMINOPHEN 325 MG TAB PO PRN (09:09)
[2024-12-18 10:58] LABS: PLATELET COUNT, AUTOMATED 529 10^3/uL (150-450)
[2024-12-18 11:32] LABS: ALT/SGPT 12 U/L (7.0-40); AST/SGOT 38 U/L (<34); CALCIUM LEVEL 9.6 MG/DL (8.5-10.1); CARBON DIOXIDE LEVEL 27 MMOL/L (20-31); CHLORIDE LEVEL 105 MMOL/L (98-107); CREATININE FOR GFR 0.77 MG/DL (0.70-1.30); GLOMERULAR FILTRATION RATE > 90.0 (>60); MAGNESIUM LEVEL 1.7 MG/DL (1.8-2.4); POTASSIUM SERUM 4.3 MMOL/L (3.5-5.1); SODIUM LEVEL 142 MMOL/L (136-145)
[2024-12-18 12:00] VITALS: BP 115/67; TEMP 97.3; O2SAT 97
[2024-12-18] MEDS: KETOROLAC 30 MG/ML 1 ML VIAL IV SCH (12:00)
[2024-12-18] MEDS: FLUZONE VACCINE TRI PF(25-26) 0.5ML SYRINGE IM.IMMUN ONE (13:42)
[2024-12-18] MEDS: GABAPENTIN 300 MG CAP PO SCH (16:14)
[2024-12-18 16:45] VITALS: BP 126/71; TEMP 97.9; O2SAT 97
[2024-12-18] MEDS: DAPTOmycin 900 MG in NS 50 ML IV SCH (18:38)
[2024-12-18] MEDS: MAGNESIUM OXIDE 400 MG TAB PO SCH (20:10)
[2024-12-18 20:18] VITALS: BP 122/68; TEMP 97.9; O2SAT 94
[2024-12-19] VITALS (8 sets, daily range): BP systolic 104–121; BP diastolic 55–70; TEMP 97.7–97.9; O2SAT 90–96
[2024-12-19 06:41] LABS: BASO # 0.1 10^3/uL (0.0-0.2); BASO % 0.6 % (0.0-1.0); EOS # 0.3 10^3/uL (0.0-0.5); EOS % 3.1 % (0.0-3.0); LYMPH # 2.7 10^3/uL (1.5-5.0); LYMPH % 26.3 % (24.0-44.0); MONO # 1.1 10^3/uL (0.0-0.8); MONO % 10.5 % (2.0-8.0); NEUTROPHILS # 6.2 10^3/uL (1.5-8.5); NEUTROPHILS % 59.2 % (36.0-66.0); PLATELET COUNT, AUTOMATED 487 10^3/uL (150-450)
[2024-12-19 07:15] LABS: CALCIUM LEVEL 8.5 MG/DL (8.5-10.1); CARBON DIOXIDE LEVEL 29 MMOL/L (20-31); CHLORIDE LEVEL 104 MMOL/L (98-107); CREATININE FOR GFR 0.75 MG/DL (0.70-1.30); GLOMERULAR FILTRATION RATE > 90.0 (>60); POTASSIUM SERUM 4.2 MMOL/L (3.5-5.1); SODIUM LEVEL 142 MMOL/L (136-145)
[2024-12-19] MEDS ORDERED: KETOROLAC 30 MG/ML 1 ML VIAL As Ordered ONE (11:01)
[2024-12-19] MEDS ORDERED: ONDANSETRON 4MG/2ML VIAL As Ordered ONE (11:01)
[2024-12-19] MEDS ORDERED: dexAMETHasone 4 MG/ML 1 ML VIAL As Ordered ONE (11:01)
[2024-12-19] MEDS ORDERED: ACETAMINOPHEN 1000MG/100ML IV BAG As Ordered ONE (11:01)
[2024-12-19] MEDS ORDERED: LIDOCAINE 2% 100 MG/5 ML SDV (FOR ANES.) As Ordered ONE (11:01)
[2024-12-19] MEDS ORDERED: MIDAZOLAM INJ 2 MG/2 ML VIAL As Ordered ONE (11:01)
[2024-12-19 13:17] LABS: CPK CREATINE PHOSPHOKINASE 454 U/L (46-171)
[2024-12-19] MEDS: LR 1,000 ML IV SCH (13:40)
[2024-12-19] MEDS: ONDANSETRON 4MG/2ML VIAL IV PRN (14:13)
[2024-12-19] MEDS: HYDROMORPHONE HCL 0.5 MG/0.5 ML SYRINGE IV PRN (14:14)
[2024-12-20 00:23] VITALS: BP 114/60; TEMP 97.9; O2SAT 95
[2024-12-20 06:07] VITALS: BP 117/64; TEMP 97.7; O2SAT 95
[2024-12-20 08:08] LABS: BASO # 0.0 10^3/uL (0.0-0.2); BASO % 0.3 % (0.0-1.0); EOS # 0.1 10^3/uL (0.0-0.5); EOS % 0.7 % (0.0-3.0); LYMPH # 3.2 10^3/uL (1.5-5.0); LYMPH % 21.8 % (24.0-44.0); MONO # 1.2 10^3/uL (0.0-0.8); MONO % 7.8 % (2.0-8.0); NEUTROPHILS # 10.2 10^3/uL (1.5-8.5); NEUTROPHILS % 69.1 % (36.0-66.0); PLATELET COUNT, AUTOMATED 530 10^3/uL (150-450)
[2024-12-20 08:32] LABS: CALCIUM LEVEL 8.3 MG/DL (8.5-10.1); CARBON DIOXIDE LEVEL 28 MMOL/L (20-31); CHLORIDE LEVEL 104 MMOL/L (98-107); CREATININE FOR GFR 0.72 MG/DL (0.70-1.30); GLOMERULAR FILTRATION RATE > 90.0 (>60); POTASSIUM SERUM 4.2 MMOL/L (3.5-5.1); SODIUM LEVEL 140 MMOL/L (136-145)
[2024-12-20 14:00] VITALS: BP 119/73; TEMP 97.5
[2024-12-20 20:49] VITALS: BP 134/71; TEMP 97.9; O2SAT 94
[2024-12-21 06:27] VITALS: BP 138/78; TEMP 97.5; O2SAT 100
[2024-12-21 06:55] LABS: PLATELET COUNT, AUTOMATED 592 10^3/uL (150-450)
[2024-12-21 07:16] LABS: CALCIUM LEVEL 8.2 MG/DL (8.5-10.1); CARBON DIOXIDE LEVEL 29 MMOL/L (20-31); CHLORIDE LEVEL 103 MMOL/L (98-107); CREATININE FOR GFR 0.79 MG/DL (0.70-1.30); GLOMERULAR FILTRATION RATE > 90.0 (>60); POTASSIUM SERUM 4.1 MMOL/L (3.5-5.1); SODIUM LEVEL 143 MMOL/L (136-145)
[2024-12-21 07:33] LABS: ATYPICAL LYMPH 4 % (0-5); BASOPHILS 1 % (0-1); EOSINOPHILS 1 % (0-3); LYMPHOCYTES 29 % (16-44); MONOCYTES 4 % (0-5); NEUTROPHILS 61 % (28-66); PLATELET ESTIMATE INCREASED (NORMAL)
[2024-12-21] MEDS ORDERED: OXYC-517 PO (08:04)
[2024-12-21] MEDS ORDERED: ENOXAPARIN 40 MG/0.4 ML SYRINGE (J1650 PER 10MG) SC SCH (12:00)
== END 2024-12-21 11:00 | disposition home or self-care (01) | DRG 313 ==
LOC: M ED 15:00 → M ED INP 19:08 → M MS5PR 22:37
PROVIDERS: ADMIT Internal Medicine; ATTEND Internal Medicine Nephrology
PROC: 0SBD0ZZ Excision of Left Knee Joint, Open Approach (ICD-10-PCS; 2024-12-19)
PROC: 0SQD0ZZ Repair Left Knee Joint, Open Approach (ICD-10-PCS; principal; 2024-12-19 12:00)
DX: M00.862 Arthritis due to other bacteria, left knee (principal); E83.42 Hypomagnesemia; G47.00 Insomnia, unspecified; B95.62 Methicillin resistant Staphylococcus aureus infection as the cause of diseases classified elsewhere; M24.562 Contracture, left knee; F17.290 Nicotine dependence, other tobacco product, uncomplicated; Z88.8 Allergy status to other drugs, medicaments and biological substances; Z79.899 Other long term (current) drug therapy; F32.A Depression, unspecified; F41.9 Anxiety disorder, unspecified

== ENCOUNTER 2024-12-21 11:00 | Outpatient (CLI) | payer OTHER ==
[~2024-12-21 11:00] MED LIST changes: +BUPR-766 PO; +CELE0.09 PO; +OXYC-517 PO; +REXU1TAB4 PO; +SFHIBU600 PO
[2024-12-21] MEDS: DALBAVANCIN 1,500 MG in D5W 250 ML IV ONE (12:51)
== END 2024-12-21 13:36 | disposition home or self-care (01) ==
LOC: M OPCLI5PR 11:00 → M MS5PR 11:00 → M OPCLI5PR 13:36
PROVIDERS: ATTEND Internal Medicine Infectious Disease
DX: M00.062 Staphylococcal arthritis, left knee (principal); A41.02 Sepsis due to Methicillin resistant Staphylococcus aureus
CPT/HCPCS: 96365; J0875

== ENCOUNTER → 2025-01-30 | Outpatient (CLI) | payer OTHER ==
[2025-01-30 14:50] LABS: BASO # 0.1 10^3/uL (0.0-0.2); BASO % 0.7 % (0.0-1.0); EOS # 0.3 10^3/uL (0.0-0.5); EOS % 2.8 % (0.0-3.0); LYMPH # 3.1 10^3/uL (1.5-5.0); LYMPH % 35.4 % (24.0-44.0); MONO # 0.7 10^3/uL (0.0-0.8); MONO % 7.5 % (2.0-8.0); NEUTROPHILS # 4.7 10^3/uL (1.5-8.5); NEUTROPHILS % 53.3 % (36.0-66.0); PLATELET COUNT, AUTOMATED 445 10^3/uL (150-450)
[2025-01-30 15:16] LABS: ALT/SGPT 12 U/L (7.0-40); AST/SGOT 22 U/L (<34); CALCIUM LEVEL 9.0 MG/DL (8.5-10.1); CARBON DIOXIDE LEVEL 27 MMOL/L (20-31); CHLORIDE LEVEL 102 MMOL/L (98-107); CREATININE FOR GFR 1.28 MG/DL (0.70-1.30); GLOMERULAR FILTRATION RATE 70.8 (>60); POTASSIUM SERUM 4.6 MMOL/L (3.5-5.1); SODIUM LEVEL 137 MMOL/L (136-145)
== END ==
LOC: M EKG 14:08
DX: Z01.810 Encounter for preprocedural cardiovascular examination (principal); Z01.812 Encounter for preprocedural laboratory examination; Z01.82 Encounter for allergy testing; R94.31 Abnormal electrocardiogram [ECG] [EKG]